=== PATIENT | female | born 1970 | race Caucasian/White ===

== ENCOUNTER 2017-04-19 22:59 | Emergency (ER) | payer OTHER ==
[2017-04-19 23:24] LABS: BASOPHIL % 0.5 % (0-2); PLATELET COUNT 269 x10^3mcL (130-400)
[2017-04-19 23:25] LABS: RED CELL DISTRIBUTION WIDTH 23.1 % (11.5-14.5)
[2017-04-19 23:34] LABS: CALCIUM 8.1 mg/dL (8.5-10.1); CARBON DIOXIDE 27.1 mmol/L (21-32); CHLORIDE SERUM 103 mmol/L (98-107); CREATININE SERUM 0.9 mg/dL (0.6-1.0); GFR1 > 60 mL/min; GLUCOSE SERUM 229 mg/dL (74-106); POTASSIUM SERUM 3.8 mmol/L (3.5-5.1); SODIUM SERUM 140 mmol/L (136-145)
[2017-04-19 23:49] LABS: ALBUMIN 3.6 g/dL (3.4-5.0); ALKALINE PHOSPHATASE 93 U/L (46-116); ALT/SGPT 29 U/L (14-59); AST/SGOT 40 U/L (15-37); BILIRUBIN TOTAL 0.3 mg/dL (0.20-1.00); MAGNESIUM 1.7 mg/dL (1.8-2.4); TOTAL PROTEIN, SERUM 7.4 g/dL (6.4-8.2)
[2017-04-19 23:50] LABS: CK-MB < 0.5 ng/mL (0-3.6); CREATINE KINASE 92 U/L (26-192)
[2017-04-19 23:57] LABS: UA SPECIFIC GRAVITY 1.025 (1.005-1.035); microscopic required? YES; urine erythrocyte 1+ (NEGATIVE)
[2017-04-20 05:16] VITALS: BP 119/79
== END 2017-04-20 03:53 | disposition home or self-care (01) ==
LOC: ED 22:59
PROVIDERS: Emergency Medicine
DX: E83.42 Hypomagnesemia (principal); F41.9 Anxiety disorder, unspecified; E11.9 Type 2 diabetes mellitus without complications; J45.909 Unspecified asthma, uncomplicated
CPT/HCPCS: 36415; J1885; J3475; Q0092

== ENCOUNTER 2018-05-13 09:35 | Emergency (ER) | payer MEDICAID ==
[~2018-05-13] VITALS: Ht 160 cm; Wt 72.6 kg
[2018-05-13 09:37] VITALS: Ht 160 cm; Wt 72.6 kg
[2018-05-13 11:15] LABS: BASOPHIL % 0.7 % (0-2); PLATELET COUNT 293 x10^3mcL (130-400)
[2018-05-13 11:35] LABS: RED CELL DISTRIBUTION WIDTH 20.3 % (11.5-14.5)
[2018-05-13 11:41] LABS: CALCIUM 9.1 mg/dL (8.5-10.1); CARBON DIOXIDE 27.9 mmol/L (21-32); CHLORIDE SERUM 101 mmol/L (98-107); CREATININE SERUM 0.9 mg/dL (0.6-1.0); GFR1 > 60 mL/min; GLUCOSE SERUM 129 mg/dL (74-106); POTASSIUM SERUM 4.2 mmol/L (3.5-5.1); SODIUM SERUM 138 mmol/L (136-145)
[2018-05-13 11:51] LABS: microscopic required? NO
[2018-05-13 11:54] LABS: ALBUMIN 3.9 g/dL (3.4-5.0); ALKALINE PHOSPHATASE 105 U/L (46-116); AMYLASE 30 U/L (25-115); AST/SGOT 32 U/L (15-37); CHOLESTEROL 146 mg/dL (<200); HDL CHOLESTEROL 25 mg/dL (40-60); LIPASE 187 IU/L (73-393); T4(THYROXINE) 8.9 ug/dL (4.7-13.3); TOTAL PROTEIN, SERUM 8.5 g/dL (6.4-8.2)
[2018-05-13 12:02] LABS: ALT/SGPT 18 U/L (14-59)
[2018-05-13 12:22] LABS: UA SPECIFIC GRAVITY 1.025 (1.005-1.035); urine erythrocyte NEGATIVE (NEGATIVE)
[2018-05-13 12:35] LABS: AMPHETAMINE QUAL UR NONE DETECTED (See below)
[2018-05-13 15:43] VITALS: BP 109/64
== END 2018-05-13 16:25 | disposition home or self-care (01) ==
LOC: ED 09:35
PROVIDERS: Emergency Medicine
DX: D50.9 Iron deficiency anemia, unspecified (principal); N93.8 Other specified abnormal uterine and vaginal bleeding; D25.9 Leiomyoma of uterus, unspecified; R55 Syncope and collapse; E11.9 Type 2 diabetes mellitus without complications; I10 Essential (primary) hypertension; E66.01 Morbid (severe) obesity due to excess calories; J45.909 Unspecified asthma, uncomplicated
CPT/HCPCS: 83880; J7030